=== PATIENT | female | born 1950 | race Caucasian/White ===

== ENCOUNTER → 2019-06-21 | Day surgery (SDC) | payer MEDICARE, OTHER ==
[~2019-06-21] MED LIST: ASPIRIN325 PO; CALCIUM WITH V1 EAC1 PO; CRESTOR10 MG PO; CYCLOBENZAPRINE5 MG PO; IBUPROFEN 400400 M2 PO; KAPSPARGO SPRIN25 MG PO; KLOR-CON 1010 MEQ PO; LISINOPRIL20 MG PO; OMEPRAZOLE40 MG PO; PERCOCET PO; SERTRALINE HCL50 MG PO; TYLENOL325 MG PO
--- NOTE | ~2019-06-21 | OP ---
[address] [address] OPERATIVE REPORT Name: EDITH ROSENTHAL Room: [facility]#: [id number] Admission: 06/21/19 Attend Phys: Eddi Frederick II Discharge: Date of : 46 Report #: [id number] THIS REPORT FOR: //name// CC: Miriam Frederick DATE OF SERVICE: 06/21/2019 PREOPERATIVE DIAGNOSIS: Left shoulder rotator cuff tear. POSTOPERATIVE DIAGNOSES: 1. Left shoulder rotator cuff tear. 2. Biceps tendon tear. 3. Bone and cartilage debris, glenohumeral joint. 4. Lateral clavicle osteoarthritis. 5. Subacromial impingement. PROCEDURES PERFORMED: 1. Left shoulder arthroscopic surgery with rotator cuff repair. 2. Biceps tenodesis. 3. Extensive debridement of glenohumeral joint. 4. Lateral clavicle excision. 5. Subacromial decompression. SURGEON: Eddi Frederick II, DO [employer]ARN MANAGER: HERACLIO Boyd. ANESTHESIA: Per operative record. ESTIMATED BLOOD LOSS: Minimal. ANTIBIOTICS: Per operative record. DRAINS: None. COMPLICATIONS: None. DISPOSITION: The patient is stable to recovery room. DESCRIPTION OF PROCEDURE: The patient was taken to the operative suite and placed supine on the operative table, given appropriate anesthesia. The patient's left shoulder was sterilely prepped and draped in modified beach chair position and all bony prominences were well padded. Surgery began by posterior portal was advanced in the joint. There were extensive bone and cartilage debris of the glenohumeral joint. Through the anterior portal and cannula, a [address] [address] OPERATIVE REPORT Name: EDITH ROSENTHAL Room: [facility].#: [id number] Admission: 06/21/19 Attend Phys: Eddi Frederick II Discharge: Date of : 46 Report #: [id number] shaver was introduced and extensive debridement was performed of the superior inferior as well as anterior and posterior compartments of the shoulder as well as the labrum in this region to remove excess bone and cartilage debris. There was shown to be extensive tearing to the biceps tendon with over 50% tear noted to the intraarticular portion. Establishing an anterior portal, the biceps tendon was secured utilizing a stitch. It was then anchored into place within the bicipital groove utilizing 1 suture anchor. It was clipped from its proximal attachment and the stump was debrided. The arthroscope was then advanced to the subacromial space. There was shown to be extensive subacromial impingement and subacromial decompression with partial anterior acromioplasty was performed. The lateral clavicle was also shown to have extensive osteoarthritis at the AC joint. This was resected to the distal clavicle approximately 1 cm utilizing shaver and arthroscopic bur. The rotator cuff was then evaluated, which showed to have approximately 1.5 cm tear. This was debrided to the free edge down to fresh tissue. A bone bed was spread over the lateral humerus down to bleeding bone. Two suture tapes were then placed in the proximal aspect of the rotator cuff tear. These were then placed in X configuration and anchored with two anchors to the lateral aspect of the humerus. This was probed and shown to be intact with excellent repair of the rotator cuff and no evidence of re-tear upon range of motion testing. Final images were taken of the shoulder. It was then drained of arthroscopic fluid, closed with 4-0 nylon in simple fashion. Dermabond, sterile dressing, and sling were applied. The patient was transported to recovery room in stable condition. Counts were correct throughout the procedure. By: [id number] Frederick II, DO /nt
[2019-06-21 11:10] LABS: HEMATOCRIT 37.2 % (37.0-47.0); HEMOGLOBIN 12.7 gm/dL (12.0-15.0); MCH 28.6 pg (26.0-34.0); MCHC 34.1 g/dL (28.0-37.0); MCV 84.1 fL (80.0-100.0); RBC 4.43 mil/uL (4.20-5.00); RDW-CV 15.3 % (10.5-14.5); WBC 6.5 thou/uL (4.0-11.0)
[2019-06-21 11:27] LABS: CALCIUM 9.4 mg/dL (8.5-10.1); CREATININE 0.8 mg/dL (0.6-1.3); POTASSIUM 4.1 mmol/L (3.5-5.1)
[2019-06-21 11:28] LABS: ALBUMIN 3.8 g/dL (3.4-5.0); TOTAL BILIRUBIN 0.5 mg/dL (<0.1-1.0); TOTAL PROTEIN 7.2 g/dL (6.4-8.2)
--- NOTE | 2019-06-21 12:10 | EKG ---
[place] [address] ELECTROCARDIOGRAM REPORT Name: EDITH ROSENTHAL Room: [facility]#: [id number] Admission: 06/21/19 Attend Phys: Eddi Frederick II Discharge: Date of : 46 Report #: [id number] THIS REPORT FOR: //name// [facility] Test Date: 2019-06-21 Test Time: 10:46:07 Pat Name: EDITH ROSENTHAL Department: Room: Gender: [employer]: : 1950 Requested By: Eddi Frederick Order Number: [id number] María Elena MD: Jeyson Jin Measurements Intervals [place] Rate: 79 P: -17 MI: 109 QRS: 6 QRSD: 92 T: 11 QT: 371 QTc: 426 Interpretive Statements Sinus rhythm Short MI interval LVH by voltage No previous ECG available for comparison Electronically Signed On 06-21-2019 12:10:30 CDT by Jeyson Jin [email or web address] <ELECTRONICALLY SIGNED> By: Jeyson Jin MD, [facility] 06/21/19 1210 1046 1046 Jeyson Jin MD, FACC /EPI
--- NOTE | 2019-06-22 11:53 | NUR ---
LATE NOTE: 06/21/19 [address] Mercer that she did not want any Versed given to her prior to surgery. Stated that it makes her very "foggy" for an extended amount of time. When getting patient set up for block pt again stated to me that she did not to receive any Versed. I then went back to Dr. Mercer and told him of patients request. When asking if we could possible do Fentanyl instead of Versed Dr. Mercer stated that he prefers to use both medications. Reminded him again of patient requesting to not have Versed.
== END | disposition home or self-care (01) ==
LOC: M.SUR 10:27
PROVIDERS: Orthopaedic Surgery
DX: M75.102 Unspecified rotator cuff tear or rupture of left shoulder, not specified as traumatic (principal); M19.012 Primary osteoarthritis, left shoulder; M25.812 Other specified joint disorders, left shoulder; M67.813 Other specified disorders of tendon, right shoulder; Z88.0 Allergy status to penicillin; Z88.8 Allergy status to other drugs, medicaments and biological substances; Z79.899 Other long term (current) drug therapy; Z79.82 Long term (current) use of aspirin